=== PATIENT | male | born 1980 | race Caucasian/White ===

== ENCOUNTER 2021-06-14 18:53 | Emergency (ER) | payer BC ==
[~2021-06-14] VITALS: Ht 177.8 cm; Wt 105.0 kg
[2021-06-14 19:10] VITALS: BP 132/73
[2021-06-14] MEDS ORDERED: LIDOCAINE 1%, 10ML INFIL ONE (19:30)
--- NOTE | 2021-06-14 19:59 | NUR ---
pt to room from lobby
[2021-06-14] MEDS ORDERED: LIDOCAINE-MPF 1%, 5ML ONE (20:03)
== END 2021-06-14 20:41 | disposition home or self-care (01) ==
LOC: ED 18:54
DX: S63.285A Dislocation of proximal interphalangeal joint of left ring finger, initial encounter (principal); X58.XXXA Exposure to other specified factors, initial encounter; Y93.89 Activity, other specified; Y92.89 Other specified places as the place of occurrence of the external cause; Y99.8 Other external cause status
CPT/HCPCS: 26770; 99284